=== PATIENT | female | born 1980 | race Caucasian/White ===

== ENCOUNTER → 2023-11-21 13:08 | Outpatient (REF) | payer BC, SELFPAY | LOC: HWRAD 13:08 | PROVIDERS: ATTENDING PHYSICIAN Family Medicine | DX: E04.2 Nontoxic multinodular goiter (principal) | CPT/HCPCS: 76536 ==

== ENCOUNTER → 2023-12-30 10:49 | Outpatient (REF) | payer BC, SELFPAY | LOC: RAD 10:49 | PROVIDERS: ATTENDING PHYSICIAN Nurse Practitioner Family | DX: R05.3 Chronic cough (principal) | CPT/HCPCS: 71046 ==

== ENCOUNTER → 2024-01-06 09:40 | Outpatient (REF) | payer BC, SELFPAY | LOC: HWWDC 09:40 | PROVIDERS: ATTENDING PHYSICIAN Nurse Practitioner Family; FAMILY PHYSICIAN Family Medicine | DX: Z12.31 Encounter for screening mammogram for malignant neoplasm of breast (principal) | CPT/HCPCS: 77063; 77067 ==

== ENCOUNTER → 2024-01-11 09:22 | Outpatient (REF) | payer BC, SELFPAY | LOC: WDC 09:22 | PROVIDERS: ATTENDING PHYSICIAN Nurse Practitioner Family; FAMILY PHYSICIAN Family Medicine | DX: R92.8 Other abnormal and inconclusive findings on diagnostic imaging of breast (principal) | CPT/HCPCS: 76642 ==

== ENCOUNTER → 2024-08-21 11:50 | Outpatient (REF) | payer BC, SELFPAY | LOC: RAD 11:50 | PROVIDERS: ATTENDING PHYSICIAN Nurse Practitioner Family | DX: M79.604 Pain in right leg (principal); M79.605 Pain in left leg | CPT/HCPCS: 73564; 73590 ==